=== PATIENT | female | born 1955 | race Caucasian/White ===

== ENCOUNTER 2018-06-12 12:11 | Emergency (ER) | payer MEDICARE ==
--- NOTE | 2018-06-12 16:27 | RAD ---
CHEST TWO VIEWS: 06/12/18 COMPARISON: Comparison is made with a 04/05/15 study. The heart seems slightly larger but still normal in size. Th ere is no vascular congestion, edema, or pleural effusion. No lobar consolidation was seen. There is a little prominence of some of the basilar and perihilar markings, though the difference over time is not very substantial. This may be minor chronic change. Mild degenerative changes are seen in the sp ine. IMPRESSION: No definite acute findings. At most, minor prominence of some of the basilar/perihilar markings, part icularly on the right. POS: HOME
== END 2018-06-12 13:40 | disposition home or self-care (01) ==
LOC: BURERS 12:11
DX: J20.9 Acute bronchitis, unspecified (principal); Z79.899 Other long term (current) drug therapy; Z79.51 Long term (current) use of inhaled steroids
CPT/HCPCS: 71046

== ENCOUNTER 2018-08-05 14:29 | Emergency (ER) | payer MEDICARE | END 2018-08-05 15:29 | disposition home or self-care (01) | LOC: BURERS 14:29 | DX: S76.111A Strain of right quadriceps muscle, fascia and tendon, initial encounter (principal); J45.909 Unspecified asthma, uncomplicated; Z79.899 Other long term (current) drug therapy; Z79.51 Long term (current) use of inhaled steroids; X50.9XXA Other and unspecified overexertion or strenuous movements or postures, initial encounter | CPT/HCPCS: 99281 ==

== ENCOUNTER 2019-08-21 10:19 | Emergency (ER) | payer MEDICARE ==
[2019-08-21] MEDS ORDERED: Ibuprofen 800 MG TAB ONE (11:22)
[2019-08-21] MEDS ORDERED: Cyclobenzaprine 10 MG TAB ONE (11:22)
== END 2019-08-21 11:34 | disposition home or self-care (01) ==
LOC: BURERS 10:19
DX: M62.830 Muscle spasm of back (principal); J45.909 Unspecified asthma, uncomplicated; K21.9 Gastro-esophageal reflux disease without esophagitis; E78.5 Hyperlipidemia, unspecified; E78.00 Pure hypercholesterolemia, unspecified
CPT/HCPCS: 99282

== ENCOUNTER 2022-05-06 13:20 | Emergency (ER) | payer MEDICARE ==
[2022-05-06 13:51] LABS: #Lymphocytes 0.4 thou/uL (1.20-3.40); #Monocytes 0.4 thou/uL (0.11-0.59); #Neutrophils 1.9 thou/uL (1.40-6.50); %Basophils 1.1 % (0.0-1.0); %Eosinophils 0.3 % (0.0-10.0); %Lymphocytes 15.9 % (21.0-51.0); %Monocytes 13.6 % (0.0-10.0); %Neutrophils 69.1 % (42.0-75.0); Hemoglobin 12.7 g/dL (12.0-16.0); Mean Corpuscular HGB CONC 32.1 g/dL (32.0-36.0); Mean Corpuscular Hemoglobin 27.8 pg (27.0-31.0); Mean Corpuscular Volume 86.6 fl (78.0-98.0); Mean Platelet Volume 8.4 fL (7.4-10.4); Platelet Count 128 10x3/uL (130-400); RBC Distribution Width 12.4 % (11.5-14.5); Red Blood Cell (RBC) Count 4.58 mill/uL (4.20-5.40); White Blood Cell (WBC) Count 2.8 10x3/uL (4.8-10.8)
[2022-05-06] MEDS ORDERED: diphenhydrAMINE 50 MG/ML VIAL ONE (13:56)
[2022-05-06] MEDS ORDERED: Metoclopramide HCl 10 MG/2 ML VIAL ONE (13:56)
[2022-05-06 14:00] LABS: Prothrombin Time 13.5 sec (12.0-14.7)
[2022-05-06 14:08] LABS: ALT (SGPT) 20 U/L (8-55); AST (SGOT) 12 U/L (5-34); Alkaline Phosphatase 69 U/L (40-110); Anion Gap 13 mmol/L (10-20); BUN (Urea Nitrogen) 12 mg/dL (9.8-20.1); Bilirubin, Total 0.5 mg/dL (0.2-1.2); Calc. Creatinine Clearance 0 mL/min (70-130); Carbon Dioxide 26 mmol/L (23-31); Chloride 104 mmol/L (98-107); Estimated GFR 91; Globulin 2.8 g/dL (2.4-3.5); Glucose 109 mg/dL (80-115); Potassium 3.8 mmol/L (3.5-5.1); Protein, Total 6.8 g/dL (5.8-8.1); Sodium 139 mmol/L (136-145)
== END 2022-05-06 15:46 | disposition home or self-care (01) ==
LOC: BURERS 13:20
DX: R51.9 Headache, unspecified (principal); E78.5 Hyperlipidemia, unspecified; E78.00 Pure hypercholesterolemia, unspecified
CPT/HCPCS: 80053; 85025; 85610; 87804; 93005; 96374; 96375; J1200; J2765

== ENCOUNTER 2022-05-08 10:40 | Emergency (ER) | payer MEDICARE ==
[2022-05-08 11:21] LABS: Bilirubin Small (Negative); Blood, Urine Negative (Negative); Clarity Cloudy (Clear); Glucose, Urine (Dipstick) Negative (Negative); Ketone, Urine Negative (Negative); Leukocyte Negative (Negative); Nitrite Negative (Negative); Protein, Urine (Dipstick) Negative (Neg-Trace); Urobilinogen 0.2 mg/dL (Less than 2); pH, Urine 5.5 (5.0-9.0)
== END 2022-05-08 12:39 | disposition home or self-care (01) ==
LOC: BURERS 10:40
DX: K57.92 Diverticulitis of intestine, part unspecified, without perforation or abscess without bleeding (principal); K21.9 Gastro-esophageal reflux disease without esophagitis; E78.5 Hyperlipidemia, unspecified; Z79.899 Other long term (current) drug therapy
CPT/HCPCS: 81003; 99284

== ENCOUNTER 2022-07-22 20:37 | Emergency (ER) | payer MEDICARE, OTHER ==
[2022-07-22] MEDS ORDERED: Bupivacaine 0.5% 10 ML VIAL ONE (21:06)
[2022-07-22] MEDS ORDERED: HYDROcodone/Acetaminophen 10/325 mg Tablet ONE (21:06)
== END 2022-07-22 21:33 | disposition home or self-care (01) ==
LOC: BURERS 20:37
DX: S52.531A Colles' fracture of right radius, initial encounter for closed fracture (principal); I10 Essential (primary) hypertension; E78.5 Hyperlipidemia, unspecified; W18.30XA Fall on same level, unspecified, initial encounter
CPT/HCPCS: 29125; J3490